=== PATIENT | male | born 1955 | race African-American/Black ===

== ENCOUNTER 2017-12-02 10:47 | Emergency (ER) | payer MEDICAID ==
[~2017-12-02] VITALS: Ht 180.3 cm; Wt 99.0 kg
[2017-12-02 10:57] VITALS: BP 151/97
== END 2017-12-02 12:07 | disposition home or self-care (01) ==
LOC: ER 11:02
DX: S61.451A Open bite of right hand, initial encounter (principal); L08.9 Local infection of the skin and subcutaneous tissue, unspecified; I10 Essential (primary) hypertension; E11.9 Type 2 diabetes mellitus without complications; W54.0XXA Bitten by dog, initial encounter; Y93.89 Activity, other specified; Y92.89 Other specified places as the place of occurrence of the external cause; Y99.8 Other external cause status
CPT/HCPCS: 99283

== ENCOUNTER 2020-03-23 13:40 | Inpatient (IN) | payer MEDICAID ==
[~2020-03-23] VITALS: Ht 180.3 cm; Wt 99.8 kg
[2020-03-23] MEDS ORDERED: SODIUM CHLORIDE 0.9% 2,000 ML IV ONE (15:18)
[2020-03-23 15:26] LABS: BASOPHILS % 0.2 % (0.0-2.0); HEMATOCRIT. 43.3 % (42.0-52.0); HEMOGLOBIN. 14.8 g/dL (14.0-18.0); LYMPHOCYTES % 10.2 % (20.0-50.0); MEAN CORPUSCULAR HEMOGLOBIN 29.4 pg (28.0-32.0); MEAN CORPUSCULAR VOLUME 86.2 fL (80.0-94.0); MEAN PLATELET VOLUME 8.9 fl (7.4-10.4); MONOCYTES % 8.9 % (2.0-8.0); NEUTROPHILS % 80.7 % (40.0-76.0); PLATELET 156 x1000/uL (130-400); RED BLOOD CELL COUNT 5.02 mill/uL (4.7-6.1); RED CELL DISTRIBUTION WIDTH 14.2 % (11.6-14.6)
[2020-03-23 15:29] LABS: CHLORIDE 99 mEq/L (98-107)
[2020-03-23 15:34] LABS: D-DIMER 1.41 mg/L FEU (<0.50); ETHANOL BLOOD < 10 mg/dL; PROTHROMBIN TIME 10.9 sec (9.6-11.0)
[2020-03-24 01:51] VITALS: BP 139/85
[2020-03-24] MEDS ORDERED: LOSA25TA26 PO (02:44)
[2020-03-24] MEDS ORDERED: METF-414 PO (02:44)
[2020-03-24] MEDS ORDERED: HYDR25TA PO (02:44)
[2020-03-24 04:00] VITALS: BP 131/71
[2020-03-24 07:37] LABS: BASOPHILS % 0.2 % (0.0-2.0); EOSINOPHILS % 0.1 % (0.0-5.0); HEMATOCRIT. 42.5 % (42.0-52.0); HEMOGLOBIN. 14.4 g/dL (14.0-18.0); LYMPHOCYTES % 20.7 % (20.0-50.0); MEAN CORPUSCULAR HEMOGLOBIN 29.5 pg (28.0-32.0); MEAN CORPUSCULAR VOLUME 86.7 fL (80.0-94.0); MEAN PLATELET VOLUME 9.3 fl (7.4-10.4); MONOCYTES % 8.4 % (2.0-8.0); NEUTROPHILS % 70.6 % (40.0-76.0); PLATELET 146 x1000/uL (130-400); RED CELL DISTRIBUTION WIDTH 13.9 % (11.6-14.6)
[2020-03-24 07:49] LABS: CHLORIDE 103 mEq/L (98-107)
[2020-03-24 07:57] LABS: CREATINE KINASE 403 IU/L (39-308)
[2020-03-24 07:59] LABS: CREATINE KINASE MB FRACTION < 1.0 ng/mL (0.5-3.6)
[2020-03-24 08:00] VITALS: BP_SYST 113; BP_SYST 114; BP_SYST 128; BP_DIAS 76; BP_DIAS 80
[2020-03-24] MEDS ORDERED: PNEUMOCOCCAL 23-VAL P-SAC VAC 0.5 ML IM ONE (08:00)
[2020-03-24 12:00] VITALS: BP 124/73
[2020-03-24] MEDS ORDERED: DEXTROSE 50% WATER 50ML SYRINGE IV PRN (13:30)
[2020-03-24] MEDS ORDERED: CLONIDINE 0.1MG TABLET PO PRN (13:30)
[2020-03-24 13:57] LABS: CREATINE KINASE 380 IU/L (39-308)
[2020-03-24] MEDS: ACETAMINOPHEN 325MG TABLET PO PRN ×2 (14:21→23:27)
[2020-03-24 16:00] VITALS: BP 122/78
[2020-03-24] MEDS: BLOOD SUGAR DIAGNOSTIC STRIP TEST SCH ×2 (17:02→21:54)
[2020-03-24] MEDS: INSULIN LISPRO 100 UNITS/ML SUBCUT SCH ×2 (17:02→21:00)
[2020-03-24 20:00] VITALS: BP 126/85
[2020-03-24] MEDS: CEFTRIAXONE 1 G PREMIX 50 ML IV SCH (23:56)
[2020-03-25] VITALS: BP 125/80
[2020-03-25] MEDS: AZITHROMYCIN 500 MG in DEXT 5% WATER 250 ML IV SCH ×2 (00:14→20:40)
[2020-03-25 04:00] VITALS: BP 118/79
[2020-03-25] MEDS: INSULIN LISPRO 100 UNITS/ML SUBCUT SCH ×4 (06:14→20:53)
[2020-03-25] MEDS: BLOOD SUGAR DIAGNOSTIC STRIP TEST SCH ×4 (06:14→20:53)
[2020-03-25 06:41] LABS: CHLORIDE 101 mEq/L (98-107)
[2020-03-25 06:52] LABS: CREATINE KINASE 315 IU/L (39-308)
[2020-03-25 08:00] VITALS: BP 121/84
[2020-03-25 08:08] LABS: HEPATITIS B SURFACE ANTIGEN NEGATIVE
[2020-03-25 08:36] LABS: HEPATITIS A AB IGM NEGATIVE (NEGATIVE)
[2020-03-25] MEDS: ACETAMINOPHEN 325MG TABLET PO PRN ×2 (10:09→20:00)
[2020-03-25 12:00] VITALS: BP 118/73
[2020-03-25 16:00] VITALS: BP 131/85
[2020-03-25 20:00] VITALS: BP 122/90
[2020-03-25] MEDS: CEFTRIAXONE 1 G PREMIX 50 ML IV SCH (20:40)
[2020-03-26] VITALS: BP 143/90
[2020-03-26 04:00] VITALS: BP 142/91
[2020-03-26] MEDS: ACETAMINOPHEN 325MG TABLET PO PRN ×2 (04:55→16:01)
[2020-03-26] MEDS: BLOOD SUGAR DIAGNOSTIC STRIP TEST SCH ×4 (07:40→20:38)
[2020-03-26] MEDS: INSULIN LISPRO 100 UNITS/ML SUBCUT SCH ×4 (07:56→20:40)
[2020-03-26 08:00] VITALS: BP 114/69
[2020-03-26 12:00] VITALS: BP_SYST 110; BP_SYST 112; BP_DIAS 70; BP_DIAS 72
[2020-03-26 15:53] VITALS: BP_SYST 104; BP_SYST 116; BP_DIAS 70; BP_DIAS 71; BP_DIAS 80
[2020-03-26] MEDS: ENOXAPARIN 100MG/ML SYR SUBCUT SCH (17:58)
[2020-03-26 20:00] VITALS: BP_SYST 127; BP_SYST 129; BP_SYST 142; BP_DIAS 78; BP_DIAS 80; BP_DIAS 86
[2020-03-26] MEDS: CEFTRIAXONE 1 G PREMIX 50 ML IV SCH (20:38)
[2020-03-26] MEDS: AZITHROMYCIN 500 MG in DEXT 5% WATER 250 ML IV SCH (20:55)
[2020-03-27] VITALS (7 sets, daily range): BP systolic 98–125; BP diastolic 63–80
[2020-03-27] MEDS: ACETAMINOPHEN 325MG TABLET PO PRN ×4 (00:47→23:55)
[2020-03-27] MEDS: ENOXAPARIN 100MG/ML SYR SUBCUT SCH ×2 (06:02→17:17)
[2020-03-27] MEDS: INSULIN LISPRO 100 UNITS/ML SUBCUT SCH ×4 (06:15→21:00)
[2020-03-27] MEDS: BLOOD SUGAR DIAGNOSTIC STRIP TEST SCH ×4 (06:15→21:18)
[2020-03-27 07:58] LABS: CLARITY URINE CLEAR (CLEAR); COLOR URINE YELLOW (YELLOW); KETONES URINE NEGATIVE (NEGATIVE); LEUKOCYTE ESTERASE URINE NEGATIVE (NEGATIVE); NITRITE URINE NEGATIVE (NEGATIVE); OCCULT BLOOD URINE NEGATIVE (NEGATIVE); PROTEIN URINE 2+ (NEGATIVE); SPECIFIC GRAVITY URINE 1.024 (1.005-1.030); UROBILINOGEN URINE 0.2 E.U./dL (0.2-1.0)
[2020-03-27] MEDS: THIAMINE HCL 100MG TABLET PO SCH ×2 (08:30→17:15)
[2020-03-27] MEDS: ASCORBIC ACID 500 MG TABLET PO SCH ×2 (08:30→17:15)
[2020-03-27] MEDS: ZINC SULFATE 220 MG ( 50 ) CAPSULE PO SCH (08:30)
[2020-03-27] MEDS: CEFTRIAXONE 1 G PREMIX 50 ML IV SCH (20:35)
[2020-03-27] MEDS: AZITHROMYCIN 500 MG in DEXT 5% WATER 250 ML IV SCH (21:18)
[2020-03-28] VITALS: BP 125/78
[2020-03-28 04:00] VITALS: BP 118/74
[2020-03-28] MEDS: ENOXAPARIN 100MG/ML SYR SUBCUT SCH ×2 (05:40→17:03)
[2020-03-28] MEDS: ACETAMINOPHEN 325MG TABLET PO PRN ×2 (05:53→17:03)
[2020-03-28] MEDS: INSULIN LISPRO 100 UNITS/ML SUBCUT SCH ×3 (06:09→17:33)
[2020-03-28] MEDS: BLOOD SUGAR DIAGNOSTIC STRIP TEST SCH ×3 (06:09→17:33)
[2020-03-28 08:00] VITALS: BP 123/80
[2020-03-28] MEDS: THIAMINE HCL 100MG TABLET PO SCH ×2 (08:46→17:03)
[2020-03-28] MEDS: ASCORBIC ACID 500 MG TABLET PO SCH ×2 (08:46→17:03)
[2020-03-28] MEDS: ZINC SULFATE 220 MG ( 50 ) CAPSULE PO SCH (08:46)
[2020-03-28 12:00] VITALS: BP 105/63
[2020-03-28 16:12] VITALS: BP 110/70
[2020-03-28 18:49] VITALS: BP 110/70
== END 2020-03-28 19:30 | disposition home or self-care (01) | DRG 720 ==
LOC: ER 13:51 → 5WST 16:57 → EDBEDREQ 17:10 → EDBEDREQTM 17:10 → ENRESERV 22:44 → 7WST 03-24 18:12
PROVIDERS: ADMIT Internal Medicine; ATTEND Internal Medicine
DX: A41.89 Other specified sepsis (principal); U07.1 COVID-19; N17.9 Acute kidney failure, unspecified; J18.9 Pneumonia, unspecified organism; E11.36 Type 2 diabetes mellitus with diabetic cataract; E11.65 Type 2 diabetes mellitus with hyperglycemia; M62.82 Rhabdomyolysis; G90.8 Other disorders of autonomic nervous system; E66.9 Obesity, unspecified; I10 Essential (primary) hypertension; J12.89 Other viral pneumonia; J98.11 Atelectasis; B19.20 Unspecified viral hepatitis C without hepatic coma; J44.0 Chronic obstructive pulmonary disease with (acute) lower respiratory infection; Z86.711 Personal history of pulmonary embolism; Z68.30 Body mass index [BMI] 30.0-30.9, adult; Z71.89 Other specified counseling
CPT/HCPCS: 36415; 71045; 78580; 80048; 80053; 80320; 81003; 82550; 82553; 82728; 82962; 83036; 83605; 83615; 83735; 83880; 84145; 84484; 85025; 85379; 85651; 86141; 86705; 86709; 86803; 87340; 93005; 93306; 93880; 93970; 99285; J0456; J0696; J1650; J1815; J7030; J7060; G0480; U0003-CS

== ENCOUNTER 2020-10-11 09:19 | Emergency (ER) | payer MEDICAID ==
[~2020-10-11] VITALS: Ht 180.3 cm; Wt 100.0 kg
[~2020-10-11 09:19] MED LIST: HYDR25TA PO; LOSA25TA26 PO; METF-414 PO
[2020-10-11] MEDS ORDERED: IBUPROFEN 800MG TABLET PO ONE (10:00)
[2020-10-11 10:45] VITALS: BP 134/95
== END 2020-10-11 10:47 | disposition home or self-care (01) ==
LOC: ER 09:19
DX: H60.92 Unspecified otitis externa, left ear (principal); L01.00 Impetigo, unspecified; I10 Essential (primary) hypertension; E11.9 Type 2 diabetes mellitus without complications; Z79.84 Long term (current) use of oral hypoglycemic drugs; Z79.899 Other long term (current) drug therapy; Z86.19 Personal history of other infectious and parasitic diseases
CPT/HCPCS: 99283

== ENCOUNTER 2021-11-03 16:07 | Emergency (ER) | payer MEDICAID ==
[~2021-11-03] VITALS: Ht 180.3 cm; Wt 100.0 kg
[2021-11-03] MEDS ORDERED: NEOM28.37 TP (19:28)
[2021-11-03] MEDS ORDERED: CIPR-263 MT (19:28)
[2021-11-03] MEDS ORDERED: IBUP-2028 MT (19:28)
[2021-11-03] MEDS ORDERED: IBUPROFEN 400MG TABLET PO ONE (19:30)
[2021-11-03 19:56] VITALS: BP 138/78
== END 2021-11-03 19:57 | disposition home or self-care (01) ==
LOC: ER 16:07
DX: H66.93 Otitis media, unspecified, bilateral (principal); L40.9 Psoriasis, unspecified; I10 Essential (primary) hypertension; E11.9 Type 2 diabetes mellitus without complications
CPT/HCPCS: 99283

== ENCOUNTER 2021-11-30 08:35 | Emergency (ER) | payer MEDICAID ==
[~2021-11-30] VITALS: Ht 180.3 cm; Wt 100.0 kg
[~2021-11-30 08:35] MED LIST changes: +CIPR-263 MT; +IBUP-2028 MT; +NEOM28.37 TP
[2021-11-30] MEDS ORDERED: SODIUM CHLORIDE 0.9% 1,000 ML IV ONE (09:00)
[2021-11-30 09:41] LABS: BASOPHILS % 0.3 % (0.0-2.0); EOSINOPHILS % 0.5 % (0.0-5.0); HEMATOCRIT. 47.3 % (42.0-52.0); HEMOGLOBIN. 16.5 g/dL (14.0-18.0); LYMPHOCYTES % 13.5 % (20.0-50.0); MEAN CORPUSCULAR HEMOGLOBIN 29.4 pg (28.0-32.0); MEAN CORPUSCULAR VOLUME 84.5 fL (80.0-94.0); MEAN PLATELET VOLUME 8.7 fl (7.4-10.4); MONOCYTES % 5.6 % (2.0-8.0); NEUTROPHILS % 80.1 % (40.0-76.0); PLATELET 254 x1000/uL (130-400); RED CELL DISTRIBUTION WIDTH 13.1 % (11.6-14.6)
[2021-11-30 09:43] LABS: CHLORIDE 105 mEq/L (98-107)
[2021-11-30 13:34] VITALS: BP 118/81
== END 2021-11-30 13:35 | disposition home or self-care (01) ==
LOC: ER 08:35
DX: R42 Dizziness and giddiness (principal); E11.9 Type 2 diabetes mellitus without complications; I10 Essential (primary) hypertension; Z86.19 Personal history of other infectious and parasitic diseases; Z79.84 Long term (current) use of oral hypoglycemic drugs
CPT/HCPCS: 36415; 70450; 71045; 80053; 84484; 85025; 93005; 96360; 99285; J7030

== ENCOUNTER 2022-03-16 06:58 | Emergency (ER) | payer MEDICAID ==
[~2022-03-16] VITALS: Ht 185.4 cm; Wt 100.0 kg
[2022-03-16] MEDS ORDERED: ASPIRIN 81MG TABLET PO ONE (09:00)
[2022-03-16] MEDS: NITROGLYCERIN 0.4MG TABLET SL SL PRN ×3 (09:02→10:26)
[2022-03-16 09:32] LABS: BASOPHILS % 0.3 % (0.0-2.0); EOSINOPHILS % 2.2 % (0.0-5.0); HEMATOCRIT. 45.1 % (42.0-52.0); HEMOGLOBIN. 14.8 g/dL (14.0-18.0); LYMPHOCYTES % 22.7 % (20.0-50.0); MEAN CORPUSCULAR VOLUME 85.5 fL (80.0-94.0); MEAN PLATELET VOLUME 8.9 fl (7.4-10.4); MONOCYTES % 8.7 % (2.0-8.0); NEUTROPHILS % 66.1 % (40.0-76.0); PLATELET 248 x1000/uL (130-400); RED BLOOD CELL COUNT 5.28 mill/uL (4.7-6.1); RED CELL DISTRIBUTION WIDTH 14.1 % (11.6-14.6)
[2022-03-16 09:39] LABS: CHLORIDE 109 mEq/L (98-107)
[2022-03-16 11:00] VITALS: BP 142/102
== END 2022-03-16 12:08 | disposition home or self-care (01) ==
LOC: ER 06:58
DX: R07.89 Other chest pain (principal); I10 Essential (primary) hypertension; E11.9 Type 2 diabetes mellitus without complications
CPT/HCPCS: 36415; 71045; 80053; 83880; 84484; 85025; 93005; 99285; Z7610